=== PATIENT | male | born 1980 | race Two or more races ===

== ENCOUNTER 2021-06-14 15:29 | Outpatient (CLI) | payer OTHER ==
[2021-06-14 16:14] VITALS: BP 122/87
--- NOTE | 2021-06-14 16:14 | SLEEP CARE CONSULTATION ---
Information from patient questionnaire entered by Jessie Gonzales MA. I have reviewed and concur with the information entered by Jessie Gonzales MA. This document represents the service I personally performed and the decisions made by me, Rebeka Diaz ARNP. History of Present Illness Service Date and Time: 06/14/2021 1529 Reason for Visit: New patient (ONSET 05/2018, NO PRIORS,) Chief Complaint: reports: Unrefreshed sleep, Snoring, Frequent awakenings at nig Date of Onset: 4 YEARS Usual bedtime: 0100 - 0200 Time it takes to fall asleep: DEPENDS ON THE STATE OF MIND Snores at night: Yes Observed to quit breathing while asleep: Yes Sleeps alone due to snoring: No Number of times waking at night: 2-3 Reasons for waking at night: reports: Snoring, Gasping for air, Pain, Other (sensation of falling that wakes him up). denies: Choking Toss, Turn, or Twitch while sleeping: Yes Recalls having dreams: No (he does get dejavu about his dreams sometimes) Usually gets out of bed at: 0800 - 0830 ; weekends 1505-1979 Feels refreshed in the morning: No Morning headache: No Sleepy or fatigued during the day: Yes Ever fallen asleep while driving: Yes (drowsy driving, no accidents) Takes day naps: No Dreams during day naps: No Prior sleep studies: No Additional HPI information: I had the pleasure of seeing JORDAN WILKINS today regarding the possibility of him having a sleep disorder. His current complaints are snoring, unrefreshed sleep, fatigue and frequent night awakenings. He does not wake up feeling rested. He states that being able to go to sleep depends on how tired he is. He will wake up during the night about 2-3 times a night and he can go back to sleep easily sometimes. If his mind is on overdrive he will have a hard time getting back to sleep. His has told him he snores loudly but has not told him he has pauses in breathing in his sleep. He states he has had times when he has woke up gasping for air but this is not often. He has been diagnosed with ADHD and is on Adderall. 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 Patient is and lives in [place]. Have you smoked in the past 12 months: No Alcohol use: Yes Alcohol amount and frequency: 1 X MONTHLY Caffeine use: Yes Caffeine amount and frequency: 2 X DAILY Family History Family history of sleep disordered breathing: Yes Family Hx Sleep Apnea: Grandparent: Snoring Allergies and Home Medications Drug allergies reviewed: Yes (NKDA) Home medication list reviewed: Yes Allergy and home medication list: Adderall Ibuprofen Prevident flouride Review of Systems Cardiovascular: denies: high blood pressure Gastrointestinal: denies: heartburn Neurological: denies: headaches Psychiatric: reports: Attention Deficit Hyperactivity Ear/Nose/Throat: reports: wisdom teeth removed. denies: tonsillectomy Endocrine: denies: thyroid disease Musculoskeletal: reports: joint pain, mobility problems Physical Exam Vital signs obtained and entered by: Adithya GONZALES CMA AAUT Blood Pressure: 122/87 (LEFT, PULSE 77, RESP16) Heart Rate: 71 O2 Saturation: 96 (WITH PAPER MASK) Height: 6 ft Weight: 209 lb Body Mass Index: 28.3 BMI Classification: Overweight Neck circumference: 15.75 (inches) Mouth and throat: narrow oropharynx Soft palate: long Hard palate: normal Uvula: normal Uvula visualization: 50% Mallampati Class II Tongue: normal in size Tonsils: small Neck: normal w/o lymphadenopathy or thyromegaly Heart: regular rate and rhythm Lungs: clear bilaterally Impression and Plan 1. Suspected Obstructive Sleep Apnea-Hypopnea Syndrome, as suggested by a history of loud and irregular snoring, gasping or choking in sleep, unrefreshed sleep, cognitive impairment, and excessive daytime sleepiness. Narrow oropharynx and obesity are common predisposing factors for obstructive sleep apnea-hypopnea syndrome. I recommend proceeding to polysomnography to confirm the diagnosis and to assess severity. If the patient has significant sleep disordered breathing, a manual CPAP titration study will also be performed to find the optimal treatment pressure. I informed the patient of what the sleep studies involve and after some discussion, obtained agreement to proceed. The pathophysiology of obstructive sleep apnea-hypopnea syndrome was discussed with the patient and health risks of cardiovascular and cerebrovascular disease if not treated. AAS brochure for obstructive sleep apnea-hypopnea syndrome given and reviewed. Risks of drowsy driving discussed in detail and patient advised to avoid long distance driving and to machine puller at the first sign of drowsiness. Patient agreed to plan. * Schedule polysomnography +- manual CPAP titration study and return in 1-2 weeks after the study to discuss result and initiate therapy. * Avoid long distance driving or driving when feeling sleepy. * Avoid alcohol, sedative and muscle relaxant around bedtime. * Attempt to lose weight. * Review instructions provided by trained office staff on how to prepare for the sleep study. * Return for follow-up after sleep study completed. Counseling Topics: Weight loss health impact Visit Type: In Office Time Spent with Patient (minutes): 32 Provider Statement: I spent 100% of the Face to Face Visit with the patient with greater than 50% spent counseling the patient and coordination of care.
== END 2021-06-14 15:30 | disposition home or self-care (01) ==
LOC: SC 15:29
PROVIDERS: ATTEND Nurse Practitioner Family
DX: R06.83 Snoring (principal); G47.10 Hypersomnia, unspecified; G47.8 Other sleep disorders; E66.3 Overweight; Z68.28 Body mass index [BMI] 28.0-28.9, adult
CPT/HCPCS: 99203; 99212

== ENCOUNTER 2021-07-27 20:32 | Outpatient (CLI) | payer OTHER | END 2021-07-27 20:33 | disposition home or self-care (01) | LOC: SC 20:32 | PROVIDERS: ATTEND Nurse Practitioner Family | DX: G47.61 Periodic limb movement disorder (principal) | CPT/HCPCS: 95810 ==

== ENCOUNTER 2021-08-15 14:05 | Outpatient (CLI) | payer OTHER ==
[2021-08-15 14:41] VITALS: BP 128/96
--- NOTE | 2021-08-15 14:41 | SLEEP CARE CONSULTATION ---
Information from patient questionnaire entered by Jessie Montanez MA. I have reviewed and concur with the information entered by Jessie Montanez MA. This document represents the service I personally performed and the decisions made by , Rebeka Diaz ARNP. History of Present Illness Service Date and Time: 08/15/2021 1405 Initial [place] Sleepiness Scale score: 14 (2021) Current [place] Sleepiness Scale score: 11 (08/2021) Additional HPI information: JORDAN WILKINS returns for follow up and results of the recently performed polysomnography. The patient was informed of the following findings: No significant sleep disordered breathing with an average AHI of 2.3 and evans oxygen saturation of 91%. Patient had mild snoring moderate periodic leg movements that did not fragment his sleep. I explained the pathophysiology behind obstructive sleep apnea. Patient does not have sleep apnea and was advised how weight gain could increase the risk of developing sleep apnea in the future. I strongly encouraged the patient to lose weight. Patient has mild snoring. Snoring can be reduced by weight loss. Weight loss is best achieved with diet consult. Patient instructed to contact PCP for referral. Snoring can also be treated with an oral appliance from a dentist. Advised to check insurance coverage. In addition, an ENT evaluation can be do to see if other treatment is indicated.Patient counseled not drink alcohol less than 4 hours before bedtime as it can increase snoring and apnea. Patient was cautioned about risks of drowsy driving until sleepiness symptoms resolve. Patient denies drowsy driving. Sleep Study - Results Type of Sleep Study: Polysomnography (F/U POLY, 07/27/21 [facility],) Prior sleep studies: No Polysomnography/Home Sleep Study results: IMPRESSION: The quality of the study is good. The patient had normal sleep efficiency. The sleep architecture was relatively normal as well considering the first night effect. Respiratory monitoring showed no significant sleep disordered breathing (AHI = 2.3) or hypoxia (evans oxygen saturation of 91%). The few respiratory events occurred mainly during supine sleep (supine AHI = 2.8; non-supine = 2.02). Snore was light in intensity. There was moderate periodic leg movement of sleep not associated with sleep fragmentation. Cardiac rhythm was normal sinus rhythm without significant arrhythmia. No abnormal behavior (parasomnia) observed during the night. Allergies and Home Medications Home medication list reviewed: Yes (no changes) Review of Systems Review of systems same as previous: Yes (no changes) Physical Exam Vital signs obtained and entered by: MICHELLE TONG Blood Pressure: 128/96 (LEFT, ) Cuff size: wrist Heart Rate: 79 O2 Saturation: 96 Height: 6 ft Weight: 210 lb (PT CLOTHES) Body Mass Index: 28.5 BMI Classification: Overweight Impression and Plan 1. Periodic limb movement, moderate, that did not fragment patients sleep. P eriodic limb movement of sleep (PLMS) is characterized by episodes of repetitive limb movements that occur during sleep and usually involve the lower limbs. Caffeine can also aggravate PLMS and should be avoided. Sleep hygiene methods can also improve sleep as well as lifestyle changes such as regular exercise. Patient was advised that no treatment is needed at this time. If symptoms increase, then further evaluation is indicated. 2. Snoring but no significant sleep disordered breathing. Patient advised that often weight loss will reduce snoring as well as apnea risk. An oral appliance can also be used for snoring. This would require a dental consultation. Patient cautioned not to use other online appliances as can cause bite issues. A list of accredited dentists in [facility] who make oral appliances is available in the office. Patient is advised to check if insurance will cover. An ENT consult can also be helpful to determine if any other treatment is an option. * Attempt to lose weight * Avoid alcohol consumption near bedtime * Return as needed for follow up. Counseling Topics: Weight loss health impact Visit Type: In Office Time Spent with Patient (minutes): 12 Provider Statement: I spent 100% of the Face to Face Visit with the patient with greater than 50% spent counseling the patient and coordination of care.
== END 2021-08-15 14:06 | disposition home or self-care (01) ==
LOC: SC 14:05
PROVIDERS: ATTEND Nurse Practitioner Family
DX: R06.83 Snoring (principal); G47.61 Periodic limb movement disorder
CPT/HCPCS: 99212